=== PATIENT | male | born 1995 | race Asian ===

== ENCOUNTER 2025-07-15 23:40 | Emergency (ER) | payer OTHER, BC ==
[~2025-07-15] VITALS: Ht 170.2 cm; Wt 79.3 kg
[2025-07-16 01:06] VITALS: BP 156/79
== END 2025-07-16 01:05 | disposition home or self-care (01) ==
LOC: ED 23:40
DX: S06.0X0A Concussion without loss of consciousness, initial encounter (principal); W31.89XA Contact with other specified machinery, initial encounter
CPT/HCPCS: 70450; 72125; 99283-25